=== PATIENT | male | born 2000 | race Caucasian/White ===

== ENCOUNTER 2022-10-16 13:42 | Emergency (ER) | payer BC, SELFPAY ==
[2022-10-16] MEDS ORDERED: Lidocaine 1% (PF) 30 ML VIAL ONE (14:16)
[2022-10-16] MEDS ORDERED: Boostrix 0.5 ML (Tdap) VIAL (>/=7 yrs of age) ONE (14:16)
== END 2022-10-16 15:59 | disposition home or self-care (01) ==
LOC: CSHERS 13:42
DX: S01.511A Laceration without foreign body of lip, initial encounter (principal); Z23 Encounter for immunization; W55.22XA Struck by cow, initial encounter
CPT/HCPCS: 12011; 90715; J2001